=== PATIENT | female | born 1950 | race Caucasian/White ===

== ENCOUNTER → 2016-09-09 | Outpatient (CLI) | payer MEDICARE, OTHER ==
[~2016-09-09] MED LIST: GASTROGRAFIN SOLUTION 30ML (Q9963) As Ordered ONE; ISOVUE-370 76% 100ML VIAL (Q9967) As Ordered ONE
--- NOTE | 2016-09-09 13:27 | REP ---
CT study of the chest with IV contrast: History: Restaging endometrial carcinoma. Comparison chest CT study is from March 09, 2016. CT contrast dose: 100 ml of Isovue [address] findings: An Mvoufr-P-Anrt catheter is again seen in the vena cava via the left subclavian vein. No mediastinal or hilar lymphadenopathy is seen. There is fairly prominent left coronary artery vascular calcification again noted. No axillary or supraclavicular adenopathy is seen. There is no CT evidence of pulmonary embolus or thoracic aortic dissection. No pleural or pericardial effusion is seen. There is an area of linear fibrosis in the anterior segment right upper lobe unchanged. No pulmonary nodule or mass lesion is seen. There is a stable benign hemangioma in the T9 vertebral body unchanged. No bony destructive lesion is seen. There is contrast again noted in the lumen of the esophagus with a small sliding hiatal hernia seen consistent with reflux. Impression: 1. Evidence of gastroesophageal reflux, small hiatal hernia. 2. Prominent left coronary artery vascular calcification. 3. No CT evidence of metastatic disease. Signed by Doyle Harper MD 09/09/2016 01:57 P
--- NOTE | 2016-09-09 13:34 | REP ---
CT abdomen and pelvis without and with IV contrast: With oral contrast. History: Restaging endometrial carcinoma. Comparison CT abdomen is from March 09, 2016. CT contrast dose: 100 ml of Isovue [address] findings: Preliminary digital speed operator radiograph demonstrates an unremarkable bowel gas pattern. A small sliding hiatal hernia is seen as described in the chest CT report. There is a pattern of some mural thickening in the distal gastric antrum prepyloric region. This, however, is a chronic finding and is unchanged from multiple prior CTs including March 12, 2015 and even July 23, 2014. Is it is not felt to be evidence of malignancy. The liver remains normal in size and homogeneous in texture on pre- and postcontrast images. Spleen shows no focal lesion. No pancreatic mass is observed. Gallbladder is unremarkable. No adrenal lesion is seen. The kidneys enhance symmetrically and are morphologically intact. No retroperitoneal mass or adenopathy is seen. The patient is status post hysterectomy. No ovarian cyst or mass is seen. No pelvic adenopathy is observed. There is left colonic diverticulosis affecting the sigmoid colon as previously noted. Urinary bladder is unremarkable. Impression: No CT evidence to suggest metastatic disease. Small hiatal hernia. Status post hysterectomy. Left colonic diverticulosis, stable CT findings. Signed by Doyle Harper MD 09/09/2016 01:57 P
== END ==
LOC: M RAD 11:00
PROVIDERS: ATTEND Nurse Practitioner Family
DX: C54.1 Malignant neoplasm of endometrium (principal)
CPT/HCPCS: 71260; 74178; Q9963; Q9967

== ENCOUNTER → 2016-09-16 | Outpatient (REF) | payer MEDICARE, OTHER | LOC: M LAB REF 12:56 | PROVIDERS: ATTEND Internal Medicine Medical Oncology | DX: C54.1 Malignant neoplasm of endometrium (principal) ==

== ENCOUNTER → 2016-12-15 | Outpatient (REF) | payer MEDICARE, OTHER | LOC: M LAB REF 12:12 | PROVIDERS: ATTEND Internal Medicine Medical Oncology | DX: C54.1 Malignant neoplasm of endometrium (principal) ==

== ENCOUNTER → 2017-03-17 | Outpatient (REF) | payer MEDICARE, OTHER | LOC: M LAB REF 13:18 | PROVIDERS: ATTEND Internal Medicine Medical Oncology | DX: C54.1 Malignant neoplasm of endometrium (principal) ==

== ENCOUNTER → 2017-04-29 | Outpatient (CLI) | payer MEDICARE, OTHER ==
--- NOTE | 2017-05-04 08:54 | DEXA ---
AP SPINE L1 - L4 0.934 -2.1 -0.5 LT FEMUR TOTAL 0.698 -2.5 -1.0 RT FEMUR TOTAL 0.810 -1.6 -0.2 TOTAL BODY TOTAL OTHER DUAL FEMUR FRAX* ASSESSMENT Risk factors: Not performed. 10 year probability of fracture Major osteoporotic fracture % Hip fracture % COMMENTS: There is low bone density of the spine. 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 The density of the spine is increased 1.3% since 04/28/2015. The density of the left hip has increased 0.1% since 04/28/2015. The density of the right hip has increased 5.9% since 04/28/2015. The increased density of the spine does not represent a significant change. The increased density of the left hip does not represent a significant change. The increased density of the right hip does represent a significant change. FOLLOW-UP: Recommendation for the next bone density exam: 2 years. CAROL
== END ==
LOC: M WHC 13:55
PROVIDERS: ATTEND Nurse Practitioner Family
DX: C54.1 Malignant neoplasm of endometrium (principal); N95.1 Menopausal and female climacteric states

== ENCOUNTER → 2017-06-21 | Outpatient (REF) | payer MEDICARE, OTHER | LOC: M LAB REF 15:37 | PROVIDERS: ATTEND Internal Medicine Medical Oncology | DX: C54.1 Malignant neoplasm of endometrium (principal) ==

== ENCOUNTER → 2017-09-30 | Outpatient (REF) | payer MEDICARE, OTHER ==
[2017-09-30 14:54] LABS: CA 125 8.5 U/ML (<30.2)
== END ==
LOC: M LAB REF 13:36
DX: C54.1 Malignant neoplasm of endometrium (principal)
CPT/HCPCS: 86304

== ENCOUNTER → 2017-10-05 | Outpatient (CLI) | payer MEDICARE, OTHER ==
[~2017-10-05] MED LIST changes: +GASTROGRAFIN SOLUTION 30ML (Q9963) As Ordered; -GASTROGRAFIN SOLUTION 30ML (Q9963) As Ordered ONE; +ISOVUE-370 76% 100ML VIAL (Q9967) As Ordered; -ISOVUE-370 76% 100ML VIAL (Q9967) As Ordered ONE
== END ==
LOC: M RAD 07:49
DX: C54.1 Malignant neoplasm of endometrium (principal)
CPT/HCPCS: Q9963

== ENCOUNTER 2017-11-10 07:40 | Day surgery (SDC) | payer MEDICARE, OTHER ==
[2017-11-10] MEDS: TROPICAMIDE 1% OPHTH SOLN 2ML OS (07:00)
[~2017-11-10 07:40] MED LIST changes: -GASTROGRAFIN SOLUTION 30ML (Q9963) As Ordered; -ISOVUE-370 76% 100ML VIAL (Q9967) As Ordered; +MIDAZOLAM INJ 2 MG/2 ML VIAL (J2250) As Ordered
[2017-11-10] MEDS: PROPARACAINE 0.5% OPHTH SOL 15ML OS (08:18)
[2017-11-10] MEDS: OFLOXACIN 0.3 % (OCUFLOX) OPTH SOL 5ML OS (08:18)
[2017-11-10] MEDS: PHENYLEPHRINE 2.5% OPHTH SOL 2ML OS (08:19)
[2017-11-10] MEDS ORDERED: fentaNYL 100 MCG/2 ML INJECTION (J3010) As Ordered (08:33)
[2017-11-10] MEDS ORDERED: ONDANSETRON 4MG/2ML VIAL (J2405) As Ordered (08:35)
[2017-11-10 08:53] LABS: BEDSIDE GLUCOSE 126 MG/DL (80-115)
[2017-11-10] MEDS: DUOVISC (0.50ML VISCOAT/0.55ML PROVISC) OPHTH KIT As Ordered (09:31)
[2017-11-10] MEDS: POVIDONE-IODINE 5% OPHTH PREP SOL 30ML As Ordered (09:31)
[2017-11-10] MEDS: BALANCED SALT IRRIGATION SOLUTION 500ML BAG (FOR OR EYE MACHINE) As Ordered ×2 (09:31→09:32)
[2017-11-10] MEDS: LIDOCAINE 0.75%/EPINEPHRINE 0.025% IN BSS 1ML SYR INTRACAMERAL (OR ONLY) As Ordered (09:32)
[2017-11-10] MEDS: CEFUROXIME 1MG/0.1ML INTRACAMERAL INJ As Ordered (09:32)
== END 2017-11-10 10:30 | disposition home or self-care (01) ==
LOC: M SDC 07:40
DX: H25.12 Age-related nuclear cataract, left eye (principal); I50.32 Chronic diastolic (congestive) heart failure; I11.0 Hypertensive heart disease with heart failure; E11.9 Type 2 diabetes mellitus without complications; R29.898 Other symptoms and signs involving the musculoskeletal system; G25.0 Essential tremor; D49.519 Neoplasm of unspecified behavior of unspecified kidney; D64.9 Anemia, unspecified; E66.9 Obesity, unspecified; Z68.41 Body mass index [BMI] 40.0-44.9, adult; Z88.2 Allergy status to sulfonamides; Z79.899 Other long term (current) drug therapy; Z79.82 Long term (current) use of aspirin; Z79.84 Long term (current) use of oral hypoglycemic drugs; Z92.21 Personal history of antineoplastic chemotherapy; Z92.3 Personal history of irradiation; Z85.42 Personal history of malignant neoplasm of other parts of uterus; Z96.652 Presence of left artificial knee joint; Z90.710 Acquired absence of both cervix and uterus; Z87.891 Personal history of nicotine dependence
CPT/HCPCS: 66984

== ENCOUNTER → 2018-03-03 | Outpatient (REF) | payer MEDICARE, OTHER ==
[2018-03-03 14:29] LABS: CA 125 10.9 U/ML (<30.2)
== END ==
LOC: M LAB REF 13:15
DX: C54.1 Malignant neoplasm of endometrium (principal); C77.2 Secondary and unspecified malignant neoplasm of intra-abdominal lymph nodes; C77.5 Secondary and unspecified malignant neoplasm of intrapelvic lymph nodes
CPT/HCPCS: 86304

== ENCOUNTER → 2018-11-07 | Outpatient (CLI) | payer MEDICARE, OTHER ==
[~2018-11-07] MED LIST changes: +ASPI81TA85 PO; +B121000T PO; +B121000T SL; +HYDR12.55 PO; +JANU100T PO; +KLOR20TA42 PO; +LETR2.5T2 PO; +MAGO400T PO; +METF10004 PO; -MIDAZOLAM INJ 2 MG/2 ML VIAL (J2250) As Ordered; +PRAV20TA2 PO; +PROP40TA62 PO; +PROP60TA14 PO; +RAMI1CAP26 PO; +ROPI2TAB24 PO; +VITA250T30 PO
--- NOTE | 2018-11-07 13:18 | REP ---
PET/CT: History: Restaging endometrial carcinoma. Status post GEOVANY-BSO and radiation therapy and chemotherapy. Now with lump around the umbilicus. Comparisons: Comparison CT study October 05, 2017. TECHNIQUE: 67 minutes following the intravenous injection of a 8.6 mCi dose of F-18 FDG, three-dimensional PET scintigraphy is acquired from the skull base to the proximal thighs. Triplanar noncontrast CT scanning is acquired through the same anatomic range for attenuation correction, and image registration with scan parameters optimized to minimize radiation exposure to the patient. PET scintigraphy and CT datasets were fused and displayed on a workstation with multiplanar and projection display capability. PET/CT Findings: Head and neck soft tissues are unremarkable. An Qommve-A-Zikl catheter is noted on the left. No hilar or mediastinal hypermetabolic jennifer uptake is seen. There is no abnormal hypermetabolic uptake in the pulmonary parenchyma. There is a normal variant skeletal muscle uptake in the parascapular skeletal musculature. In the abdomen and pelvis, normal hepatic, splenic, gastrointestinal, and genitourinary FDG accumulation is seen. No abnormal abdominal or pelvic hypermetabolic uptake is noted. There is a ventral hernia transmitting a small amount of intra-abdominal fat. There is normal variant skeletal muscle uptake about the pelvis. Impression: Negative PET scintigraphy. No abnormal hypermetabolic uptake is seen. Electronically Signed by Doyle Harper MD 11/07/2018 01:23 P
== END ==
LOC: M PLARAD 09:31
PROVIDERS: ATTEND Internal Medicine Hematology & Oncology
DX: Z85.42 Personal history of malignant neoplasm of other parts of uterus (principal)
CPT/HCPCS: 78815; A9552

== ENCOUNTER 2019-03-28 07:39 | Day surgery (SDC) | payer MEDICARE, OTHER ==
[~2019-03-28] VITALS: Ht 162.6 cm; Wt 122.4 kg
[~2019-03-28 07:39] MED LIST changes: +B-12100011 SL; +CALCTAB41 PO; +LIDOCAINE 2% INJ 100 MG/5 ML SDV (FOR ANES.) As Ordered ONE; +MAGN400T2 PO; +PROPOFOL 500 MG/50 ML VIAL As Ordered ONE; +VITA-113 SL; +fentaNYL 100 MCG/2 ML INJECTION (J3010) As Ordered ONE
[2019-03-28] MEDS: NS 1,000 ML IV ONE (08:08)
[2019-03-28] MEDS ORDERED: PHENYLephrine HCL 500 MCG/5 ML (100MCG/ML) SYRINGE (J2370) As Ordered ONE (09:23)
--- NOTE | 2019-03-28 09:27 | ROOR ---
Patient Name: Maribell Barrow Procedure Date: 03/28/2019 8:58 AM Date of : 1950 Age: 69 Room: [facility] Gender: Female Note Status: Finalized Procedure: Upper GI endoscopy Indications: Iron deficiency anemia Providers: DO Ottoniel Goldstein MD: SALAS HINTON MD Requesting Provider: Medicines: Propofol per Anesthesia Complications: No immediate complications. Procedure: Pre-Anesthesia Assessment: - Prior to the procedure, a History and Physical was performed, and patient medications and allergies were reviewed. The patient is competent. The risks and benefits of the procedure and the sedation options and risks were discussed with the patient. All questions were answered and informed consent was obtained. Patient identification and proposed procedure were verified by the physician, the nurse, the anesthesiologist and the hvac refrigeration technician in the endoscopy suite. Mental Status Examination: alert and oriented. Airway Examination: normal oropharyngeal airway and neck mobility. Respiratory Examination: clear to auscultation. CV Examination: normal. Prophylactic Antibiotics: The patient does not require prophylactic antibiotics. Prior Anticoagulants: The patient has taken no previous anticoagulant or antiplatelet agents. ASA Grade Assessment: III - A patient with severe systemic disease. After reviewing the risks and benefits, the patient was deemed in satisfactory condition to undergo the procedure. The anesthesia plan was to use monitored anesthesia care (MAC). Immediately prior to administration of medications, the patient was re-assessed for adequacy to receive sedatives. The heart rate, respiratory rate, oxygen saturations, blood pressure, adequacy of pulmonary ventilation, and response to care were monitored throughout the procedure. The physical status of the patient was re-assessed after the procedure. The Endoscope was introduced through the mouth, and advanced to the second part of duodenum. The upper GI endoscopy was accomplished without difficulty. The patient tolerated the procedure well. Findings: The esophagus was normal. The stomach was normal. The exam was otherwise without abnormality. Impression: - Normal esophagus. - Normal stomach. - The examination was otherwise normal. - No specimens collected. Recommendation: - Patient has a contact number available for emergencies. The signs and symptoms of potential delayed complications were discussed with the patient. Return to normal activities tomorrow. Written discharge instructions were provided to the patient. - Return to my office PRN. Carloz Asher DO 03/28/2019 9:26:45 AM Electronically signed by Carloz Asher DO Number of Addenda: 0 Note Initiated On: 03/28/2019 8:58 AM Estimated Blood Loss: Estimated blood loss: none.
--- NOTE | 2019-03-28 09:32 | ROOR ---
Patient Name: Maribell Barrow Procedure Date: 03/28/2019 8:59 AM Date of : 1950 Age: 69 Room: [facility] Gender: Female Note Status: Finalized Procedure: Colonoscopy Indications: Iron deficiency anemia Providers: DO Ottoniel Goldstein MD: SALAS HINTON MD Requesting Provider: Medicines: Propofol per Anesthesia Complications: No immediate complications. Procedure: Pre-Anesthesia Assessment: - Prior to the procedure, a History and Physical was performed, and patient medications and allergies were reviewed. The patient is competent. The risks and benefits of the procedure and the sedation options and risks were discussed with the patient. All questions were answered and informed consent was obtained. Patient identification and proposed procedure were verified by the physician, the nurse, the anesthesiologist and the environmental compliance technician in the endoscopy suite. Mental Status Examination: alert and oriented. Airway Examination: normal oropharyngeal airway and neck mobility. Respiratory Examination: clear to auscultation. CV Examination: normal. Prophylactic Antibiotics: The patient does not require prophylactic antibiotics. Prior Anticoagulants: The patient has taken no previous anticoagulant or antiplatelet agents. ASA Grade Assessment: III - A patient with severe systemic disease. After reviewing the risks and benefits, the patient was deemed in satisfactory condition to undergo the procedure. The anesthesia plan was to use monitored anesthesia care (MAC). Immediately prior to administration of medications, the patient was re-assessed for adequacy to receive sedatives. The heart rate, respiratory rate, oxygen saturations, blood pressure, adequacy of pulmonary ventilation, and response to care were monitored throughout the procedure. The physical status of the patient was re-assessed after the procedure. The Colonoscope was introduced through the anus and advanced to the cecum, identified by appendiceal orifice and ileocecal valve. The colonoscopy was performed without difficulty. The patient tolerated the procedure well. Findings: A few small-mouthed diverticula were found in the sigmoid colon. Non-bleeding internal hemorrhoids were found during retroflexion. The hemorrhoids were medium-sized and Grade II (internal hemorrhoids that prolapse but reduce spontaneously). The exam was otherwise without abnormality on direct and retroflexion views. Impression: - Diverticulosis in the sigmoid colon. - Non-bleeding internal hemorrhoids. - The examination was otherwise normal on direct and retroflexion views. - No specimens collected. Recommendation: - Patient has a contact number available for emergencies. The signs and symptoms of potential delayed complications were discussed with the patient. Return to normal activities tomorrow. Written discharge instructions were provided to the patient. - Repeat colonoscopy in 5-10 years for screening purposes. - Return to my office PRN. Carloz Asher DO 03/28/2019 9:31:46 AM Electronically signed by Carloz Asher DO Number of Addenda: 0 Note Initiated On: 03/28/2019 8:59 AM Estimated Blood Loss: Estimated blood loss: none.
[2019-03-28 09:52] VITALS: BP 114/60
== END 2019-03-28 09:53 | disposition home or self-care (01) ==
LOC: M OPP 07:39
PROVIDERS: ATTEND Surgery
DX: K64.1 Second degree hemorrhoids (principal); K57.30 Diverticulosis of large intestine without perforation or abscess without bleeding; D50.9 Iron deficiency anemia, unspecified; G47.30 Sleep apnea, unspecified; I50.9 Heart failure, unspecified; E11.9 Type 2 diabetes mellitus without complications; Z79.82 Long term (current) use of aspirin; Z86.010 Personal history of colon polyps; Z79.84 Long term (current) use of oral hypoglycemic drugs; Z79.899 Other long term (current) drug therapy; Z88.2 Allergy status to sulfonamides; Z91.040 Latex allergy status; Z91.018 Allergy to other foods; Z91.048 Other nonmedicinal substance allergy status; Z91.013 Allergy to seafood; Z87.891 Personal history of nicotine dependence
CPT/HCPCS: 43235; 45378; J2370; J3010